=== PATIENT | male | born 1985 | race Two or more races ===

== ENCOUNTER 2019-01-31 04:21 | Inpatient (IN) | payer OTHER ==
[~2019-01-31] VITALS: Ht 175.3 cm; Wt 98.0 kg
--- NOTE | 2019-01-31 11:30 | NUR ---
MS LIGHTING FIXTURES DECORATOR NOTE PT ARRIVED VIA GURNEY ACCOMPANIED BT 2 EMT PERSONNEL FROM [facility]. PT IS A/O X4, AFEBRILE. RESPIRATIONS ARE EVEN AND UNLABORED, NOT IN AY ACUTE DISTRESS NOTED. PUPILS ARE REACTIVE TO LIGHT, BILATERAL HAND BUSINESS MGR ARE STRONG AND EQUAL. DENIES ANY PAIN, SOB, N/V. ABDOMEN IS SOFT AND NONDISTENDED, BOWEL SOUNDS ARE PRESENT IN ALL 4 QUADRANT UPON AUSCULTATION. DENIES ANY BLADDER DISCOMFORT. IV SITE TO LFA 20G INTACT, NO INFILTRATION NOTED. DRESSING KEPT CLEAN AND DRY. SCABS NOTED TO RLE, LLE. PICTURES TAKEN AND PLACED IN CHART. NOTED WITH PENILE AND SCROTAL SWELLING AND REDNESS. PT REFUSED PHOTOS TO BE TAKEN. DR. MUSE MADE AWARE OF ADMISSION WITH ORDERS NOTED AND CARRIED OUT. INSTRUCTED PT TO USE CALL LIGHT WHEN ASSISTANCE IS NEEDED, CALL LIGHT IS LEFT WITHIN REACH. WILL MONITOR THROUGHOUT SHIFT FOR CONTINUITY OF CARE.
[2019-01-31] MEDS ORDERED: IV NS 0.9% 1,000 ML IV PRN (13:52)
[2019-01-31] MEDS ORDERED: MAGNESIUM HYDROXIDE 30 ML UDC PO PRN (14:00)
[2019-01-31] MEDS ORDERED: VANCOMYCIN 1.5 GM in IV NS 0.9% 500 ML IV SCH (14:00)
[2019-01-31] MEDS ORDERED: ONDANSETRON HCL/PF 4 MG/2 ML VIAL IVP PRN (14:00)
[2019-01-31] MEDS ORDERED: HYDROCODONE/APAP 5/325MG 1 EACH TABLET PO PRN (14:00)
[2019-01-31] MEDS ORDERED: ZOLPIDEM TARTRATE 5 MG TABLET PO PRN (14:00)
[2019-01-31] MEDS ORDERED: Z GUARD REMEDY 2 OZ OINT TP PRN (14:00)
[2019-01-31] MEDS ORDERED: MAG HYDROX/AL HYDROX/SIMETH 30 ML UDC PO PRN (14:00)
[2019-01-31] MEDS ORDERED: ACETAMINOPHEN 325 MG TABLET PO PRN (14:00)
[2019-01-31] MEDS ORDERED: ALPR2TAB2 PO (14:24)
[2019-01-31] MEDS ORDERED: BUPR1FIL3 SL (14:26)
[2019-01-31 14:56] VITALS: BP 133/92
[2019-01-31 16:00] VITALS: BP 138/81
[2019-01-31] MEDS ORDERED: ZOLP10TA2 PO (16:31)
[2019-01-31] MEDS ORDERED: CARI350T27 PO (16:31)
[2019-01-31] MEDS ORDERED: FEE PK DOSING 1 MIN EA MC ONE (16:33)
[2019-01-31] MEDS ORDERED: PIPERACILLIN /TAZOBACTAM 4.5 G in IV D5W 50 ML IV SCH (18:00)
[2019-01-31] MEDS: PIPERACILLIN /TAZOBACTAM 3.375 G in IV D5W 50 ML IV SCH (18:03)
--- NOTE | 2019-01-31 18:42 | NUR ---
MS RN CLOSING NOTES ALL DUE MEDS GIVEN, NEEDS MET AND RENDERED. PT IS A/O X4, AFEBRILE. RESPIRATIONS ARE EVEN AND UNLABORED, NOT IN ANY ACUTE DISTRESS NOTED. PT DENIES ANY PAIN AT THIS TIME, NO C/O SOB, N/V. IV SITE LFA INTACT, NO INFILTRATION NOTED. DRESSING KEPT CLEAN AND DRY.REMINDED PT TO USE CALL LIGHT, CALL LIGHT LEFT WITHIN REACH. SAFETY MEASURES ARE IN PLACE. WILL ENDORSE TO NEXT SHIFT FOR CONTINUITY OF CARE.
[2019-01-31] MEDS: VANCOMYCIN 1.25 GM in IV D5W 500 ML IV SCH (19:21)
--- NOTE | 2019-01-31 19:30 | NUR ---
RN MS OPENING NOTES RECEIVED PATIENT IN BED ASLEEP. EASILY AROUSABLE. ALERT AND ORIENTED X4, VERBALLY RESPONSIVE, ABLE TO MAKE NEEDS KNOWN. BREATHING EVEN AND UNLABORED. NO SOB NOTED. TOLERATING ROOM AIR. NO COMPLAINTS OF PAIN OR DISCOMFORT. NO FACIAL GRIMACING. IV ON LEFT FOREARM INTACT AND PATENT. SKIN DRY AND WARM TO TOUCH. AFEBRILE. ALL OTHER NEEDS ATTENDED TO .SAFETY MEASURES IN PLACE. CALL LIGHT WITHIN REACH. WILL CONTINUE TO MONITOR.
[2019-01-31 20:00] VITALS: BP 134/71
[2019-02-01] MEDS: PIPERACILLIN /TAZOBACTAM 3.375 G in IV D5W 50 ML IV SCH ×2 (00:33→06:17)
--- NOTE | 2019-02-01 00:37 | NUR ---
RN MS NOTES PATIENT'S MOTHER, BALWINDER, REQUESTED FOR PATIENT'S SUBOXONE TO BE CONTINUED TO PREVENT PATIENT FROM HAVING WITHDRAWALS. INFORMED MOTHER THAT THE DAY HOSPITALIST DID NOT WANT TO CONTINUE HIS SUBOXONE SINCE WE ARE TREATING HIS CELLULITIS AND NOT HIS WITHDRAWALS. PER PATIENT'S MOM, HE NEEDS SOMETHING TO CALM HIM DOWN IN CASE HE STARTS FEELING HIS WITHDRAWALS. SHE IS REQUESTING TO AT LEAST HAVE XANAX READY. INFORMED HER THAT I WOULD NEED TO GET A DOCTOR'S ORDER FIRST. DR. JACOB CARRANZA AND INFORMED OF PATIENT'S MOM'S REQUEST. PER DR. JAMES, THIS IS SOMETHING THAT NEEDS TO BE DISCUSSED WITH THE PRIMARY HOSPITALIST DURING THE DAY. INFORMED HIM THAT THE MOM DID NOT COME UNTIL LATER THIS EVENING. PER DR. BRANDON, HE CAN ONLY ORDER XANAX 0.25MG PO X1 ONLY. ORDER NOTED AND CARRIED OUT. WILL CONTINUE TO MONITOR PATIENT'S NEED FOR MEDICATION.
[2019-02-01] MEDS ORDERED: ALPRAZOLAM 0.25 MG TABLET PO PRN ×2 (01:00→13:00)
[2019-02-01] MEDS: VANCOMYCIN 1.25 GM in IV D5W 500 ML IV SCH ×2 (02:33→10:43)
--- NOTE | 2019-02-01 06:43 | NUR ---
RN MS CLOSING NOTES PATIENT RESTING IN BED. NO ACUTE CHANGES THROUGHOUT SHIFT. FELT ANXIOUS THIS MORNING AND REQUESTED FOR XANAX. ONE TIME DOSE OF XANAX GIVEN. TOLERATED WELL. PATIENT WENT BACK TO SLEEP. BREATHING EVEN AND UNLABORED. NO SOB NOTED. TOLERATING ROOM AIR. NO COMPLAINTS OF PAIN OR DISCOMFORT. NO FACIAL GRIMACING. IV ON LEFT FOREARM INTACT AND PATENT. SKIN DRY AND WARM TO TOUCH. AFEBRILE. ALL OTHER NEEDS ATTENDED TO .SAFETY MEASURES IN PLACE. CALL LIGHT WITHIN REACH. WILL ENDORSE TO ONCOMING NURSE FOR AYAH.
[2019-02-01 07:27] LABS: BASOPHILS % (AUTO) 0.3 % (0.0-2.0); EOSINOPHILS % (AUTO) 0.7 % (0.0-6.0); HEMATOCRIT 41 % (39-51); LYMPHOCYTES # (AUTO) 2.1 /CMM (0.8-4.8); LYMPHOCYTES % (AUTO) 21.9 % (20.0-44.0); MEAN CORPUSCULAR HGB CONC 35 g/dl (31.0-36.0); MEAN CORPUSCULAR VOLUME 87 fL (80-96); MONOCYTES # (AUTO) 0.7 /CMM (0.1-1.30); MONOCYTES % (AUTO) 7.8 % (2.0-12.0); NEUTROPHILS # (AUTO) 6.6 /CMM (1.8-8.9); NEUTROPHILS % (AUTO) 69.3 % (43.0-81.0); PLATELET COUNT (AUTO) 260 /CMM (150-450); RED BLOOD CELL COUNT(AUTO) 4.64 MIL/uL (4.5-6.0); WHITE BLOOD COUNT (AUTO) 9.6 K/uL (4.3-11.0)
--- NOTE | 2019-02-01 07:34 | NUR ---
RN MS OPENING NOTES RECEIVED PATIENT IN BED ASLEEP. EASILY AROUSABLE TO NAME. ALERT AND ORIENTED X4. IV GAUGE #20 ON LFA PATENT AND INTACT WITH NS AT 100 ML/HR. BREATHING EVEN AND UNLABORED TO ROOM AIR, NO SOB. NO COMPLAINTS OF PAIN OR DISCOMFORT AT THIS TIME. SKIN DRY AND WARM TO TOUCH. LINENS CLEAN AND DRY. SAFETY MEASURES IN PLACE. BED IN LOWEST LOCKED POSITION. CALL LIGHT WITHIN REACH. WILL CONTINUE TO MONITOR.
[2019-02-01 07:38] LABS: CALCIUM, SERUM 8.9 mg/dL (8.5-10.1); CREATININE 0.8 mg/dL (0.6-1.3); MAGNESIUM 1.9 mg/dL (1.8-2.4); PHOSPHORUS 2.4 mg/dL (2.5-4.9); POTASSIUM 3.2 mmol/L (3.5-5.1)
[2019-02-01 07:46] LABS: THYROID STIMULATING HORMONE 0.32 uIU/mL (0.358-3.74)
[2019-02-01 08:00] VITALS: BP 139/77
--- NOTE | 2019-02-01 09:05 | NUR ---
WOUND CARE CONSULT: PT PRESENTS WITH VERY RED SWOLLEN AND PAINFUL SCROTAL AREA AND PENIS WITH SCABS, PRESENT ON ADMISSION. DRY SCAB NOTED TO LEFT LOWER LEG, PRESENT ON ADMISSION. PT IS CONTINENT AND INDEPENDENT WITH BED MOBILITY. DEFER TO . WILL SEE PRN. Addendum: 02/01/19 at 0906 by DARINEL CONLEY WNDNU Amended: Links added.
[2019-02-01] MEDS ORDERED: POTASSIUM CHLORIDE 20 MEQ TAB.PRT.SR PO SCH (11:30)
[2019-02-01] MEDS ORDERED: K PHOS NEUTRAL 250 MG TABLET PO ONE (13:00)
--- NOTE | 2019-02-01 13:33 | NUR ---
TEMPERING KILN TENDER NOTES PATIENT LEFT FACILITY AMA. RISKS AND BENEFITS EXPLAINED REGARDING COMPLETING TREATMENT BUT, PT CONTINUED TO REFUSE CARE AND REFUSED PATIENT EDUCATION REGARDING DISEASE PROCESS AND BENEFITS OF TREATMENT COMPLIANCE. PT SIGNED FORM TO LEAVE MD ROSANA NOTIFIED. IV ACCESS ON LFA REMOVED, DRESSING PLACED AT SITE. NO BLEEDING AT SITE NOTED. PT LEFT WITH ALL BELONGINGS AND REFUSED TO SIGN BELONGINGS LIST. CHARGE NURSE AWARE. FAMILY CALLED AND INFORMED.
--- NOTE | 2019-02-01 14:00 | NUR ---
Social service consult requested by Dr. Mary for drug abuse referrals. Pt. is a 33 year old male who was admitted to [facility] for scrotal left lower extremity. SW went to see the pt. however was informed by PERCY Cox that pt. left AMA.
== END 2019-02-01 12:55 | disposition left against medical advice (07) | DRG 501 ==
LOC: MED 11:18
DX: N49.2 Inflammatory disorders of scrotum (principal); F17.210 Nicotine dependence, cigarettes, uncomplicated; F19.10 Other psychoactive substance abuse, uncomplicated; Z91.19 Patient's noncompliance with other medical treatment and regimen; N50.89 Other specified disorders of the male genital organs; Z59.0 Homelessness
CPT/HCPCS: 36415; 80048-TC; 80061-TC; 80202-TC; 83735-TC; 84100-TC; 84443-TC; 85025-TC; 87081-TC; G0378; J2543; J3370; J7030; J7040; J7060